=== PATIENT | female | born 2000 | race Caucasian/White ===

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

== ENCOUNTER → 2020-05-13 | Outpatient (CLI) | payer OTHER ==
[~2020-05-13] MED LIST changes: -CONRAY-43 43% 50ML VIAL (Q9960) As Ordered ONE; -PROHANCE 279.3MG/ML 5ML VIAL (A9576) As Ordered ONE
--- NOTE | 2020-05-15 08:52 | SLEEPCENT ---
DATE: 05/13/2020 ORDERED BY: ANNIKA Rausch Nocturnal polysomnography was performed for evaluation of sleep physiology in this patient with a history of excessive somnolence and nonrestorative sleep. Seven hours and 42 minutes of data were reviewed. There were 417.5 minutes of sleep identified. Sleep latency was normal at 14.5 minutes. REM latency was normal at 98.5 minutes. Sleep architecture was good with three progressively lengthening REM cycles. Overall sleep efficiency was 91.6%. The electrocardiogram showed a sinus rhythm with an average heart rate of 80 beats per minute. Rate ranged 60-100. EEG showed normal waveforms for wake and sleep. There was only 1 respiratory event identified of 10 seconds in duration or greater and that was a central event. The apnea-hypopnea index is normal at 0.1. Snoring was however noted over the course of the study. Respiratory-related arousals occurred 1.6 times per hour. There were no sig oxygen desaturations seen. Some activity was appreciated in the limb leads. There was one train of 30 and the limb movement arousal index is 6. IMPRESSION: Normal nocturnal polysomnogram with snoring. MTDD
== END ==
LOC: M SLEEP 20:00
PROVIDERS: ATTEND Nurse Practitioner Family
DX: R06.83 Snoring (principal)

== ENCOUNTER 2020-10-16 15:07 | Emergency (ER) | payer OTHER ==
[~2020-10-16] VITALS: Ht 160 cm; Wt 86.9 kg
[2020-10-16] MEDS ORDERED: ADDE5CAP PO (15:19)
[2020-10-16] MEDS ORDERED: AMIT25TA17 (15:19)
[2020-10-16] MEDS ORDERED: LEXA1TAB PO (15:19)
[2020-10-16] MEDS ORDERED: ONDA4TAB6 (15:19)
[2020-10-16] MEDS ORDERED: NAPR-885 (15:19)
[2020-10-16] MEDS ORDERED: RIME75TA (15:19)
--- NOTE | 2020-10-16 20:13 | REPVR ---
PROCEDURE INFORMATION: Exam: MR Lumbar Spine Without Contrast Exam date and time: 10/16/2020 7:40 PM Age: 19 years old Clinical indication: Numbness; Additional info: Numbness/weakness left leg/incontinence TECHNIQUE: Imaging protocol: Multiplanar magnetic resonance images of the lumbar spine without intravenous contrast. COMPARISON: No relevant prior studies available. FINDINGS: Vertebrae: Unremarkable. Spinal cord: Normal signal. No cord compression. L1-L2: No significant disc disease. No significant spinal canal stenosis. No neural foraminal stenosis. L2-L3: No significant disc disease. No significant spinal canal stenosis. No neural foraminal stenosis. L3-L4: No significant disc disease. No significant spinal canal stenosis. No neural foraminal stenosis. L4-L5: No significant disc disease. No significant spinal canal stenosis. No neural foraminal stenosis. L5-S1: No significant disc disease. No significant spinal canal stenosis. No neural foraminal stenosis. Soft tissues: Unremarkable. IMPRESSION: Unremarkable spine. Electronically signed by: Abhishek Guerra On 10/16/2020 20:13:36 PM
[2020-10-16 20:14] VITALS: BP 142/84
[2020-10-16] MEDS ORDERED: IBUPROFEN 800 MG TAB PO ONE (20:25)
--- NOTE | 2020-10-16 21:11 | REPVR ---
PROCEDURE INFORMATION: Exam: US Duplex Left Lower Extremity Veins, Limited Exam date and time: 10/16/2020 6:00 PM Age: 19 years old Clinical indication: Pain; Leg, lower; Left; Additional info: Pain/swelling TECHNIQUE: Imaging protocol: Real-time Duplex ultrasound of the Left Lower Extremity with 2-D tellez scale, color Doppler flow and spectral waveform analysis with image documentation. Limited exam focused on the left lower extremity veins. COMPARISON: No relevant prior studies available. FINDINGS: Left deep veins: Unremarkable. The common femoral, femoral, proximal profunda femoral and popliteal veins are patent without thrombus. Normal Doppler waveforms. Normal compressibility and/or augmentation response. Left superficial veins: Unremarkable. Saphenofemoral junction is patent without thrombus. Soft tissues: Lower leg edema. IMPRESSION: Lower leg edema. No DVT. Electronically signed by: Abhishek Guerra On 10/16/2020 21:11:48 PM
== END 2020-10-16 21:38 | disposition home or self-care (01) ==
LOC: M ED 15:07
DX: R22.43 Localized swelling, mass and lump, lower limb, bilateral (principal); R03.0 Elevated blood-pressure reading, without diagnosis of hypertension; Z88.8 Allergy status to other drugs, medicaments and biological substances; Z79.899 Other long term (current) drug therapy; Z97.5 Presence of (intrauterine) contraceptive device